=== PATIENT | female | born 1980 | race Caucasian/White ===

== ENCOUNTER 2020-12-31 14:30 | Outpatient (CLI) | payer OTHER ==
[2020-12-31 16:25] LABS: BHCG - Serum Negative (NEGATIVE); Pregs Control Background? CLEAR/WHITE (CLR/WHITE); Pregs Control Bar Appear? YES (CONTROL BAR)
[2021-01-01 01:56] LABS: SARS-CoV-2 PCR by NAA Not Detected (NotDetected)
== END 2020-12-31 14:31 | disposition home or self-care (01) ==
LOC: CSHLAB 14:30
PROVIDERS: ATTEND Otolaryngology Plastic Surgery within the Head & Neck
DX: Z01.812 Encounter for preprocedural laboratory examination (principal); Z20.822 Contact with and (suspected) exposure to COVID-19; J38.00 Paralysis of vocal cords and larynx, unspecified
CPT/HCPCS: 84703; 85014; U0003; U0005

== ENCOUNTER 2021-01-05 11:52 | Day surgery (SDC) | payer OTHER ==
[2021-01-02 10:46] VITALS: BMI 19.7
[2021-01-05] MEDS ORDERED: Lidocaine 1% MPF 2 ML VIAL ONE (12:24)
[2021-01-05] MEDS ORDERED: Ondansetron PF 4 MG/2 ML Vial ONE (13:27)
[2021-01-05] MEDS ORDERED: PROPOFOL 60 ML ONE (13:27)
[2021-01-05] MEDS ORDERED: Fentanyl 100 MCG/2 ML VIAL ONE (13:27)
[2021-01-05] MEDS ORDERED: Midazolam HCl 2 mg/2 ml Vial ONE ×2 (13:27→14:04)
[2021-01-05] MEDS ORDERED: Glycopyrrolate 0.2 MG/ML 5 ML SYRINGE ONE (13:27)
[2021-01-05] MEDS ORDERED: Dexamethasone 20 MG/5 ML VIAL ONE (13:27)
[2021-01-05] MEDS ORDERED: Lidocaine 1% PF 5 ML VIAL ONE (13:28)
[2021-01-05] MEDS ORDERED: Oxymetazoline HCl 0.05% ( 15 ML ) ONE (14:03)
[2021-01-05] MEDS ORDERED: EPINEPHrine 1 MG/ML AMP ONE (14:06)
== END 2021-01-05 15:50 | disposition home or self-care (01) ==
LOC: CSHSDC 11:52
PROVIDERS: ATTEND Otolaryngology Plastic Surgery within the Head & Neck
PROC: 0BJ08ZZ Inspection of Tracheobronchial Tree, Via Natural or Artificial Opening Endoscopic (ICD-10-PCS; principal; 2021-01-05)
PROC: 3E0F83Z Introduction of Anti-inflammatory into Respiratory Tract, Via Natural or Artificial Opening Endoscopic (ICD-10-PCS; principal; 2021-01-05)
DX: J38.01 Paralysis of vocal cords and larynx, unilateral (principal); R04.0 Epistaxis
CPT/HCPCS: J0171; J1100; J2250; J2405; J2704; J3010